=== PATIENT | female | born 1930 | race Caucasian/White ===

== ENCOUNTER 2017-04-19 13:46 | Emergency (ER) | payer OTHER, BC ==
[~2017-04-19] VITALS: Ht 162.6 cm; Wt 93.8 kg
[~2017-04-19 13:46] MED LIST: ATENOLOL25 MG PO; COUMADIN1 MG PO; CRESTOR20 MG PO; DIOVAN160 MG PO; ECOTRIN325 MG PO; FLONASE16 G1 BOTH NARES; FUROSEMIDE20 MG PO; HYDROCHLOROTH12.5 M3 PO; ISOSORBIDE MONO60 MG PO; JANTOVEN10 MG PO; LOVENOX100 MG/1 M SC; NEXIUM20 MG PO; NITROSTAT0.4 MG SL; PREVACID30 MG PO; SENNA LAXATIVE8.6 MG PO; SYSTANE 0.3-0.1 EACH BOTH EYES; VALSARTAN160 MG PO; XARELTO20 MG PO
[2017-04-19 19:30] VITALS: BP 143/65
== END 2017-04-19 19:30 | disposition home or self-care (01) ==
LOC: EME 13:46
DX: S05.11XA Contusion of eyeball and orbital tissues, right eye, initial encounter (principal); W01.198A Fall on same level from slipping, tripping and stumbling with subsequent striking against other object, initial encounter; Y93.89 Activity, other specified; K21.9 Gastro-esophageal reflux disease without esophagitis; I25.10 Atherosclerotic heart disease of native coronary artery without angina pectoris; I25.2 Old myocardial infarction; Z86.718 Personal history of other venous thrombosis and embolism; Z86.711 Personal history of pulmonary embolism; Z79.01 Long term (current) use of anticoagulants; Z85.3 Personal history of malignant neoplasm of breast; Z87.891 Personal history of nicotine dependence; Z88.2 Allergy status to sulfonamides
CPT/HCPCS: 70450; 70486; 99281; 99283

== ENCOUNTER 2017-06-10 12:31 | Inpatient (IN) | payer OTHER, BC ==
[~2017-06-10] VITALS: Ht 160 cm; Wt 95.0 kg
[~2017-06-10 12:31] MED LIST changes: -CRESTOR20 MG PO; +CRESTOR40 MG PO
[2017-06-10 13:32] LABS: BASOPHIL (%) 0.2 % (0-1); EOSINOPHIL (%) 0.2 % (0-5); HEMATOCRIT 37.3 % (36.0-46.0); HEMOGLOBIN 12.8 G/DL (11.9-15.5); IMMATURE GRANULOCYTE (%) 0.3 % (0.0-0.7); LYMPHOCYTE (%) 10.3 % (15-42); MCH 31.8 PG (29.0-34.0); MCHC 34.3 G/DL (30.0-36.0); MCV 92.6 FL (83-99); MONOCYTE (%) 6.3 % (3-12); MONOCYTE COUNT 0.6 K/uL (0-0.8); NEUTROPHIL (%) 82.7 % (45-76); NEUTROPHIL COUNT 7.8 K/uL (1.8-6.4); PLATELET COUNT 172 K/uL (156-360); RBC DIS.WIDTH-CV 12.5 % (11.8-14.6); RBC DIS.WIDTH-SD 42.4 % (39-53); RED BLOOD COUNT 4.03 M/uL (3.80-5.20); WHITE BLOOD COUNT 9.4 K/uL (4.1-10.2)
[2017-06-10 13:42] LABS: INTER. NORMALIZED RATIO 1.9
[2017-06-10 13:44] LABS: ALBUMIN 3.6 g/dL (3.2-4.8); PTT 32.8 SEC (25-37)
[2017-06-10 13:45] LABS: CHLORIDE 104 mEq/L (99-109); POTASSIUM 3.7 mEq/L (3.7-5.4); SODIUM 140 mEq/L (136-147)
[2017-06-10 13:47] LABS: GLUCOSE 121 mg/dL (70-99); TOTAL PROTEIN 7.1 g/dL (6.4-8.3)
[2017-06-10 13:49] LABS: TOTAL BILIRUBIN 0.7 mg/dL (0.0-1.0)
[2017-06-10 13:50] LABS: ALKALINE PHOSPHATASE 74 IU/L (3-129)
[2017-06-10 13:51] LABS: CREATININE 0.8 mg/dL (0.6-1.3); GFR ESTIMATE (CALCULATED) > 59 mL/min/
[2017-06-10 13:52] LABS: AST (GOT) 14 IU/L (2-34); UREA NITROGEN (BUN) 15 mg/dL (9-23)
[2017-06-10 13:53] LABS: ALT (GPT) 8 IU/L (3-49)
[2017-06-10 13:54] LABS: LIPASE 12 U/L (1.0-51.0)
[2017-06-10 13:56] LABS: TROP-I INTERPRETATION NEGATIVE; TROPONIN-I < 0.01 ng/mL (0.0-0.30)
[2017-06-10] MEDS ORDERED: ASPIR-LOW81 MG PO (16:25)
[2017-06-10] MEDS ORDERED: KENALOG,ARISTOC80 GM TP (16:26)
[2017-06-10] MEDS ORDERED: IMDUR60 MG PO (16:26)
[2017-06-10] MEDS ORDERED: HYDROCHLOROTH12.5 M3 PO (16:26)
[2017-06-10] MEDS ORDERED: ROSUVASTATIN CA40 MG PO (16:27)
[2017-06-10] MEDS ORDERED: VALSARTAN160 MG PO (16:28)
[2017-06-10] MEDS ORDERED: NITROGLYCERIN0.4 MG SL (16:28)
[2017-06-10] MEDS ORDERED: AVEENO 1% CREAM28 GM TP (16:32)
[2017-06-10 18:43] VITALS: BP 160/73
[2017-06-10 19:19] VITALS: BP 153/68
[2017-06-10 23:23] VITALS: BP 132/60
[2017-06-11 03:18] VITALS: BP 115/56
[2017-06-11 06:42] LABS: BASOPHIL (%) 0.3 % (0-1); EOSINOPHIL (%) 0.3 % (0-5); HEMATOCRIT 36.3 % (36.0-46.0); HEMOGLOBIN 12.4 G/DL (11.9-15.5); IMMATURE GRANULOCYTE (%) 0.1 % (0.0-0.7); LYMPHOCYTE (%) 16.8 % (15-42); LYMPHOCYTE COUNT 1.2 K/uL (1.0-2.8); MCH 31.6 PG (29.0-34.0); MCHC 34.2 G/DL (30.0-36.0); MCV 92.4 FL (83-99); MONOCYTE (%) 11.8 % (3-12); MONOCYTE COUNT 0.8 K/uL (0-0.8); NEUTROPHIL (%) 70.7 % (45-76); PLATELET COUNT 166 K/uL (156-360); RBC DIS.WIDTH-CV 12.6 % (11.8-14.6); RBC DIS.WIDTH-SD 42.6 % (39-53); RED BLOOD COUNT 3.93 M/uL (3.80-5.20); WHITE BLOOD COUNT 7.1 K/uL (4.1-10.2)
[2017-06-11 06:55] LABS: INTER. NORMALIZED RATIO 1.4
[2017-06-11 07:14] LABS: ALBUMIN 3.3 G/DL (3.2-4.8); ALKALINE PHOSPHATASE 58 IU/L (3-129); ALT (GPT) 5 IU/L (3-49); AST (GOT) 13 IU/L (2-34); CHLORIDE 102 MEQ/L (99-109); CREATININE 0.8 MG/DL (0.6-1.3); GFR ESTIMATE (CALCULATED) > 59 mL/min/; GLUCOSE 106 mg/dL (70-99); POTASSIUM 3.9 MEQ/L (3.7-5.4); SODIUM 139 MEQ/L (136-147); TOTAL PROTEIN 6.7 G/DL (6.4-8.3); UREA NITROGEN (BUN) 14 mg/dL (9-23)
[2017-06-11 08:08] VITALS: BP 131/60
[2017-06-11 16:02] VITALS: BP 139/62
[2017-06-11 19:32] VITALS: BP 144/64
[2017-06-11 23:24] VITALS: BP 110/54
[2017-06-12 03:12] VITALS: BP 110/52
[2017-06-12 08:17] VITALS: BP 129/63
[2017-06-12 08:46] LABS: HEMATOCRIT 33.5 % (36.0-46.0); HEMOGLOBIN 11.3 G/DL (11.9-15.5); MCH 31.7 PG (29.0-34.0); MCHC 33.7 G/DL (30.0-36.0); MCV 94.1 FL (83-99); PLATELET COUNT 147 K/uL (156-360); RBC DIS.WIDTH-CV 12.8 % (11.8-14.6); RBC DIS.WIDTH-SD 44.1 % (39-53); RED BLOOD COUNT 3.56 M/uL (3.80-5.20)
[2017-06-12 08:48] LABS: INTER. NORMALIZED RATIO 1.3
[2017-06-12 08:51] LABS: PTT 28.9 SEC (25-37)
[2017-06-12 09:10] LABS: CHLORIDE 103 MEQ/L (99-109); CREATININE 0.8 MG/DL (0.6-1.3); GFR ESTIMATE (CALCULATED) > 59 mL/min/; GLUCOSE 108 mg/dL (70-99); POTASSIUM 3.5 MEQ/L (3.7-5.4); SODIUM 139 MEQ/L (136-147); UREA NITROGEN (BUN) 10 mg/dL (9-23)
[2017-06-12 17:12] VITALS: BP 116/56
[2017-06-12 17:20] VITALS: BP 115/56
[2017-06-12 19:56] VITALS: BP 109/56
[2017-06-13 00:24] VITALS: BP 110/56
[2017-06-13 05:50] LABS: HEMATOCRIT 32.6 % (36.0-46.0); HEMOGLOBIN 10.9 G/DL (11.9-15.5); MCH 30.9 PG (29.0-34.0); MCHC 33.4 G/DL (30.0-36.0); MCV 92.4 FL (83-99); PLATELET COUNT 157 K/uL (156-360); RBC DIS.WIDTH-CV 12.4 % (11.8-14.6); RBC DIS.WIDTH-SD 41.5 % (39-53); RED BLOOD COUNT 3.53 M/uL (3.80-5.20); WHITE BLOOD COUNT 8.7 K/uL (4.1-10.2)
[2017-06-13 06:12] LABS: CHLORIDE 106 MEQ/L (99-109); CREATININE 0.7 MG/DL (0.6-1.3); GFR ESTIMATE (CALCULATED) > 59 mL/min/; MAGNESIUM 1.9 mg/dl (1.3-2.7); POTASSIUM 3.7 MEQ/L (3.7-5.4); SODIUM 139 MEQ/L (136-147); UREA NITROGEN (BUN) 10 mg/dL (9-23)
[2017-06-13 06:13] LABS: GLUCOSE 185 mg/dL (70-99)
[2017-06-13 06:34] VITALS: BP 150/60
[2017-06-13 07:30] VITALS: BP 146/65
[2017-06-13 07:46] VITALS: BP 146/65
[2017-06-13] MEDS ORDERED: FLAGYL500 MG PO (09:56)
[2017-06-13] MEDS ORDERED: COLACE100 MG PO (09:56)
[2017-06-13] MEDS ORDERED: CIPRO500 MG PO (09:56)
[2017-06-13] MEDS ORDERED: ONDANSETRON HCL8 MG PO (09:56)
[2017-06-13] MEDS ORDERED: DILAUDID4 MG PO (09:56)
[2017-06-13 12:00] VITALS: BP 107/53
[2017-06-13 13:25] VITALS: BP 150/68
== END 2017-06-13 14:00 | disposition home or self-care (01) | DRG 419 ==
LOC: EME 12:31 → 3EAST 16:03 → EDOF 16:03 → ENRESERV 16:08 → 3EAST 18:09
PROVIDERS: Emergency Medicine; Internal Medicine; Surgery
DX: K80.00 Calculus of gallbladder with acute cholecystitis without obstruction (principal); K81.9 Cholecystitis, unspecified; K21.9 Gastro-esophageal reflux disease without esophagitis; E78.5 Hyperlipidemia, unspecified; L30.9 Dermatitis, unspecified; I25.10 Atherosclerotic heart disease of native coronary artery without angina pectoris; I10 Essential (primary) hypertension; Z96.651 Presence of right artificial knee joint; Z87.891 Personal history of nicotine dependence; Z79.01 Long term (current) use of anticoagulants; Z85.828 Personal history of other malignant neoplasm of skin; I25.2 Old myocardial infarction; Z90.49 Acquired absence of other specified parts of digestive tract; Z87.01 Personal history of pneumonia (recurrent); Z85.3 Personal history of malignant neoplasm of breast; Z86.711 Personal history of pulmonary embolism; Z79.82 Long term (current) use of aspirin; Z88.2 Allergy status to sulfonamides; Z88.8 Allergy status to other drugs, medicaments and biological substances; I35.0 Nonrheumatic aortic (valve) stenosis; Z79.899 Other long term (current) drug therapy; K66.0 Peritoneal adhesions (postprocedural) (postinfection); Z68.37 Body mass index [BMI] 37.0-37.9, adult; Z82.49 Family history of ischemic heart disease and other diseases of the circulatory system
CPT/HCPCS: 71045; 74300; 76705; 80048; 80053; 83690; 83735; 84484; 85025; 85027; 85610; 85730; 87070; 87075; 87077; 87186; 87205; 88304; 93005; 94799; 99281; 99285; C1769; J0131; J0690; J1100; J1170; J1644; J1885; J2250; J2270; J2405; J2543; J2710; J3010; J7030; J7050; S0028

== ENCOUNTER 2017-06-16 13:12 | Emergency (ER) | payer OTHER, BC ==
[~2017-06-16] VITALS: Ht 160 cm; Wt 95.6 kg
[~2017-06-16 13:12] MED LIST changes: +ASPIR-LOW81 MG PO; +AVEENO 1% CREAM28 GM TP; +CIPRO500 MG PO; +COLACE100 MG PO; +DILAUDID4 MG PO; +FLAGYL500 MG PO; +IMDUR60 MG PO; +KENALOG,ARISTOC80 GM TP; +NITROGLYCERIN0.4 MG SL; +ONDANSETRON HCL8 MG PO; +ROSUVASTATIN CA40 MG PO
[2017-06-16 14:35] LABS: APPEARANCE CLEAR ((CLEAR)); BILIRUBIN NEGATIVE; BLOOD NEGATIVE; COLOR YELLOW ((YELLOW)); GLUCOSE (STRIP) NEGATIVE; KETONES NEGATIVE; LEUKOCYTES SMALL; NITRITE NEGATIVE; PROTEIN (STRIP) NEGATIVE; SPECIFIC GRAVITY 1.013 (1.000-1.030); UROBILINOGEN 0.2 MG/DL (0.2-1.0)
[2017-06-16 14:38] LABS: HEMATOCRIT 38.2 % (36.0-46.0); MCH 31.5 PG (29.0-34.0); MCHC 33.8 G/DL (30.0-36.0); MCV 93.2 FL (83-99); PLATELET COUNT 201 K/uL (156-360); RBC DIS.WIDTH-CV 12.6 % (11.8-14.6); RBC DIS.WIDTH-SD 42.9 % (39-53); WHITE BLOOD COUNT 6.5 K/uL (4.1-10.2)
[2017-06-16 14:39] LABS: HEMOGLOBIN 12.9 G/DL (11.9-15.5)
[2017-06-16 14:46] LABS: ALBUMIN 3.4 g/dL (3.2-4.8); CHLORIDE 101 mEq/L (99-109); POTASSIUM 3.5 mEq/L (3.7-5.4); SODIUM 140 mEq/L (136-147)
[2017-06-16 14:46] LABS: BACTERIA NONE SEEN /HPF; EPITHELIAL CELLS RARE /HPF; MUCUS TRACE /LPF; RED BLOOD CELLS 0-5 /HPF (0-5); UCUL ADDED? NO; WHITE BLOOD CELLS 0-5 /HPF (0-5)
[2017-06-16 14:48] LABS: GLUCOSE 101 mg/dL (70-99)
[2017-06-16 14:51] LABS: TOTAL BILIRUBIN 0.5 mg/dL (0.0-1.0)
[2017-06-16 14:52] LABS: CREATININE 0.8 mg/dL (0.6-1.3); GFR ESTIMATE (CALCULATED) > 59 mL/min/
[2017-06-16 14:53] LABS: ALKALINE PHOSPHATASE 124 IU/L (3-129); UREA NITROGEN (BUN) 9 mg/dL (9-23)
[2017-06-16 14:56] LABS: LIPASE 9 U/L (1.0-51.0)
[2017-06-16 14:58] LABS: ALT (GPT) 24 IU/L (3-49); AST (GOT) 24 IU/L (2-34)
[2017-06-16] MEDS ORDERED: VANCOCIN HCL125 MG PO (18:11)
[2017-06-16 18:51] VITALS: BP 170/87
== END 2017-06-16 19:05 | disposition home or self-care (01) ==
LOC: EME 13:12
PROVIDERS: Physician Assistant
DX: R19.7 Diarrhea, unspecified (principal); R10.9 Unspecified abdominal pain; Z90.49 Acquired absence of other specified parts of digestive tract; Z98.890 Other specified postprocedural states; I10 Essential (primary) hypertension; K21.9 Gastro-esophageal reflux disease without esophagitis; E78.5 Hyperlipidemia, unspecified; I25.10 Atherosclerotic heart disease of native coronary artery without angina pectoris; I25.2 Old myocardial infarction; Z87.891 Personal history of nicotine dependence; Z86.711 Personal history of pulmonary embolism; Z85.3 Personal history of malignant neoplasm of breast; Z88.2 Allergy status to sulfonamides
CPT/HCPCS: 74177; 80053; 81003; 83690; 85027; 87493; 99281; 99284